=== PATIENT | female | born 1940 | race Caucasian/White ===

== ENCOUNTER 2018-07-15 08:56 | Emergency (ER) | payer OTHER ==
[~2018-07-15] VITALS: Ht 149.9 cm; Wt 63.5 kg
[~2018-07-15 08:56] MED LIST: ASPIR 8181 MG PO; COZAAR100 MG PO; DILTIAZEM HCL180 MG PO; HYDROCHLOROTHIA25 MG PO; SIMVASTATIN40 M1 PO; VITAMIN D32000 I2 PO
[2018-07-15 09:04] VITALS: BP 150/61; Ht 149.9 cm; Wt 63.5 kg
== END 2018-07-15 10:50 | disposition home or self-care (01) ==
LOC: ED 08:56
DX: S00.83XA Contusion of other part of head, initial encounter (principal); I10 Essential (primary) hypertension; E78.00 Pure hypercholesterolemia, unspecified; R73.03 Prediabetes; Z88.0 Allergy status to penicillin; W22.8XXA Striking against or struck by other objects, initial encounter; Y93.89 Activity, other specified; Y92.89 Other specified places as the place of occurrence of the external cause; Y99.8 Other external cause status